=== PATIENT | female | born 1940 | race Caucasian/White ===

== ENCOUNTER 2021-01-30 15:20 | Emergency (ER) | payer MEDICARE, BC ==
[~2021-01-30] VITALS: Ht 149.9 cm; Wt 45.5 kg
[2021-01-30] MEDS ORDERED: fentaNYL/PF 50MCG/1 ML 2ML syringe IV ONE (19:05)
[2021-01-30] MEDS ORDERED: etomidate 2mg/ml inj. IV ONE (19:05)
[2021-01-30] MEDS ORDERED: ondansetron/PF 4mg/2ml inj IV ONE ×2 (19:05)
[2021-01-30] MEDS ORDERED: normal saline 1000ML IV soln IVB ONE (19:05)
[2021-01-30] MEDS ORDERED: MIDAZolam 5mg/ml 2ml vial IV ONE (19:20)
--- NOTE | 2021-01-30 19:57 | NUR ---
LALI PAGED AT [id number]
[2021-01-30] MEDS ORDERED: HYDR-3964 PO (20:07)
[2021-01-30] MEDS ORDERED: ONDA4TAB6 PO (20:07)
[2021-01-30 21:11] VITALS: BP 113/56
== END 2021-01-30 21:12 | disposition home or self-care (01) ==
LOC: ER 15:21
DX: S43.004A Unspecified dislocation of right shoulder joint, initial encounter (principal); S42.291A Other displaced fracture of upper end of right humerus, initial encounter for closed fracture; Z79.899 Other long term (current) drug therapy; W19.XXXA Unspecified fall, initial encounter; Y93.89 Activity, other specified; Y92.89 Other specified places as the place of occurrence of the external cause; Y99.8 Other external cause status
CPT/HCPCS: 23650; 73020; 73030; 94799; 96374; 99152; 99153; 99285; J2250; J2405; J3010; J3490; J7030; 29125; 94760; 96375; 99283